=== PATIENT | male | born 1990 | race Caucasian/White ===

== ENCOUNTER 2023-03-23 23:11 | Emergency (ER) | payer MEDICAID ==
[~2023-03-23] VITALS: Ht 177.8 cm; Wt 112.9 kg
[2023-03-23 23:36] VITALS: BP_SYST 146
--- NOTE | 2023-03-23 23:45 | NUR ---
DOG BITE LEFT FOREARM/HAND/WRIST, RIGHT FOREARM, ABRASIONS TO BILATERAL KNEE, COMPLAINTS OF 2/10 PAIN, NO ACTIVE BLEDDING NOTED
--- NOTE | 2023-03-24 00:45 | NUR ---
LEFT WITHOUT BEING SEEN BY
== END 2023-03-24 00:45 | disposition left against medical advice (07) ==
LOC: SED 23:11
DX: S51.832A Puncture wound without foreign body of left forearm, initial encounter (principal); S61.532A Puncture wound without foreign body of left wrist, initial encounter; S80.212A Abrasion, left knee, initial encounter; S80.211A Abrasion, right knee, initial encounter; Z53.21 Procedure and treatment not carried out due to patient leaving prior to being seen by health care provider; W54.0XXA Bitten by dog, initial encounter; Y93.89 Activity, other specified; Y92.89 Other specified places as the place of occurrence of the external cause; Y99.8 Other external cause status
CPT/HCPCS: 99281